=== PATIENT | male | born 1975 | race Caucasian/White ===

== ENCOUNTER → 2021-03-27 | Outpatient (CLI) | payer OTHER ==
--- NOTE | 2021-03-27 14:25 | REP ---
INDICATION: ELEVATED LFT'S COMPARISON: None. TECHNIQUE: Real time solano scale ultrasound examination using curved array transducer. FINDINGS: Liver is mildly hyperechoic suggesting subtle fatty infiltration. No focal hepatic lesions are identified. The pancreas is incompletely evaluated due to interposed bowel gas but visualized portions appear normal. The gallbladder is normal and without gallstones, wall thickening, or pericholecystic fluid. No biliary ductal dilatation is appreciated and the common bile duct measures 2.5 mm diameter. Right kidney is normal in reniform shape without hydronephrosis and measures 10.6 x 4.6 x 3.8 cm. No ascites in the visualized right upper quadrant. IMPRESSION: Mild hepatosteatosis. <Electronically signed by Christiano Rehman > 03/27/21 6120
== END ==
LOC: M RAD 08:05
PROVIDERS: ATTEND Nurse Practitioner Adult Health
DX: R74.01 Elevation of levels of liver transaminase levels (principal)

== ENCOUNTER → 2021-09-11 | Outpatient (REF) | payer OTHER | LOC: M LAB REF 14:49 | PROVIDERS: ATTEND Physician Assistant | DX: D22.4 Melanocytic nevi of scalp and neck (principal) ==

== ENCOUNTER → 2022-04-16 | Outpatient (REF) | payer OTHER | LOC: M LAB REF 16:29 | PROVIDERS: ATTEND Surgery | DX: D22.9 Melanocytic nevi, unspecified (principal) ==

== ENCOUNTER → 2022-10-24 | Outpatient (CLI) | payer OTHER | LOC: M EKG 10:59 | PROVIDERS: ATTEND Nurse Practitioner Adult Health | DX: R00.9 Unspecified abnormalities of heart beat (principal) ==

== ENCOUNTER 2023-10-13 15:38 | Emergency (ER) | payer BC, OTHER ==
[~2023-10-13] VITALS: Ht 170.2 cm; Wt 75.0 kg
[2023-10-13] MEDS ORDERED: LISI20TA33 (15:47)
[2023-10-13] MEDS ORDERED: ZOLP6.2517 (15:47)
[2023-10-13] MEDS ORDERED: LORazepam 2 MG TAB PO STA (19:12)
[2023-10-13] MEDS ORDERED: LORazepam 1 MG TAB PO STA (19:27)
[2023-10-13 19:55] LABS: BASO # 0.1 10^3/uL (0.0-0.2); BASO % 0.5 % (0.0-1.0); EOS % 0.1 % (0.0-3.0); HEMATOCRIT 46.3 % (42.0-52.0); HEMOGLOBIN 16.4 g/dl (13.5-17.5); LYMPH % 22.3 % (24.0-44.0); MEAN CORPUSCULAR HEMOGLOBIN 33.3 pg (27.0-33.0); MEAN CORPUSCULAR HGB CONC 35.4 g/dl (32.0-36.5); MEAN CORPUSCULAR VOLUME 94.1 fl (80.0-96.0); MONO # 1.5 10^3/uL (0.0-0.8); MONO % 11.3 % (2.0-8.0); NEUTROPHILS # 8.8 10^3/uL (1.5-8.5); NEUTROPHILS % 65.4 % (36.0-66.0); PLATELET COUNT, AUTOMATED 381 10^3/uL (150-450); RED BLOOD COUNT 4.92 10^6/uL (4.30-6.10); WHITE BLOOD COUNT 13.4 10^3/uL (4.0-10.0)
[2023-10-13] MEDS ORDERED: LORA2TAB14 PO ×2 (20:41→20:44)
[2023-10-13 20:43] VITALS: BP 152/99; TEMP 98.1; O2SAT 99
[2023-10-13] MEDS ORDERED: ATIV2TAB PO (20:46)
== END 2023-10-13 21:05 | disposition home or self-care (01) ==
LOC: M ED 15:38
DX: F41.9 Anxiety disorder, unspecified (principal); I10 Essential (primary) hypertension; Z88.1 Allergy status to other antibiotic agents

== ENCOUNTER 2023-12-11 10:46 | Emergency (ER) | payer BC ==
[~2023-12-11] VITALS: Ht 167.6 cm; Wt 74.1 kg
[~2023-12-11 10:46] MED LIST: ATIV2TAB PO; LISI20TA33 PO; LORA2TAB14 PO; ZOLP6.2517 PO
[2023-12-11] MEDS ORDERED: NS 1,000 ML IV ONE (10:55)
[2023-12-11 11:00] VITALS: TEMP 96.1
[2023-12-11] MEDS ORDERED: MED REC IN PROGRESS XX SCH (11:05)
[2023-12-11 11:15] LABS: BASO # 0.1 10^3/uL (0.0-0.2); BASO % 0.6 % (0.0-1.0); EOS % 0.1 % (0.0-3.0); HEMATOCRIT 45.6 % (42.0-52.0); HEMOGLOBIN 15.6 g/dl (13.5-17.5); LYMPH # 2.3 10^3/uL (1.5-5.0); LYMPH % 27.4 % (24.0-44.0); MEAN CORPUSCULAR HEMOGLOBIN 34.1 pg (27.0-33.0); MEAN CORPUSCULAR HGB CONC 34.2 g/dl (32.0-36.5); MEAN CORPUSCULAR VOLUME 99.6 fl (80.0-96.0); MONO # 0.5 10^3/uL (0.0-0.8); MONO % 5.8 % (2.0-8.0); NEUTROPHILS # 5.5 10^3/uL (1.5-8.5); NEUTROPHILS % 65.9 % (36.0-66.0); PLATELET COUNT, AUTOMATED 284 10^3/uL (150-450); RED BLOOD COUNT 4.58 10^6/uL (4.30-6.10); WHITE BLOOD COUNT 8.4 10^3/uL (4.0-10.0)
[2023-12-11 11:42] LABS: ALBUMIN 3.5 G/DL (3.2-5.2); ALKALINE PHOSPHATASE 89 U/L (46-116); ALT/SGPT 36 U/L (7.0-40); AST/SGOT 32 U/L (<34); BILIRUBIN,DIRECT 0.2 MG/DL (<0.4); BILIRUBIN,TOTAL 0.6 MG/DL (0.3-1.2); BLOOD UREA NITROGEN 13 MG/DL (9-23); CARBON DIOXIDE LEVEL 27 MMOL/L (20-31); CHLORIDE LEVEL 109 MMOL/L (98-107); CREATININE FOR GFR 0.98 MG/DL (0.70-1.30); GLOMERULAR FILTRATION RATE > 60.0 (>60); GLUCOSE, FASTING 158 MG/DL (60-100); POTASSIUM SERUM 4.6 MMOL/L (3.5-5.1); SALICYLATE LEVEL < 3.0 MG/DL (<30); SODIUM LEVEL 142 MMOL/L (136-145); TOTAL PROTEIN 6.4 G/DL (5.7-8.2)
[2023-12-11 11:45] LABS: THYROID STIMULATING HORMONE 1.605 uIU/ML (0.55-4.78)
[2023-12-11 11:49] LABS: RSV AMPLIFICATION NEGATIVE (NEGATIVE)
[2023-12-11 12:05] LABS: ETHYL ALCOHOL (ETHANOL) 0.448 % (0.000-0.010)
[2023-12-11 14:48] LABS: AMPHETAMINES LEVEL URINE NEGATIVE (NEGATIVE); BARBITURATES URINE NEGATIVE (NEGATIVE); BENZODIAZEPINES URINE NEGATIVE (NEGATIVE); CANNABINOIDS URINE NEGATIVE (NEGATIVE); COCAINE METABOLITE URINE NEGATIVE (NEGATIVE); METHADONE URINE NEGATIVE (NEGATIVE); OPIATES URINE NEGATIVE (NEGATIVE); PHENCYCLIDINE URINE NEGATIVE (NEGATIVE)
[2023-12-11 16:51] VITALS: O2SAT 97
[2023-12-11 17:05] VITALS: BP 133/85
== END 2023-12-11 17:38 | disposition home or self-care (01) ==
LOC: EDBD 10:46 → M ED 10:46
DX: F10.129 Alcohol abuse with intoxication, unspecified (principal); E04.1 Nontoxic single thyroid nodule; I10 Essential (primary) hypertension; F41.9 Anxiety disorder, unspecified; Z79.899 Other long term (current) drug therapy; Z88.1 Allergy status to other antibiotic agents

== ENCOUNTER → 2024-01-05 | Outpatient (CLI) | payer BC | LOC: M RAD 11:47 | PROVIDERS: ATTEND Internal Medicine | DX: E04.1 Nontoxic single thyroid nodule (principal) ==

== ENCOUNTER → 2024-01-13 | Outpatient (REF) | payer BC | LOC: M LAB REF 17:12 | PROVIDERS: ATTEND Internal Medicine Endocrinology, Diabetes & Metabolism | DX: E04.1 Nontoxic single thyroid nodule (principal) ==

== ENCOUNTER → 2024-02-16 | Outpatient (REF) | payer BC | LOC: M LAB REF 17:24 | PROVIDERS: ATTEND Internal Medicine Endocrinology, Diabetes & Metabolism | DX: E04.1 Nontoxic single thyroid nodule (principal) ==

== ENCOUNTER → 2025-03-08 | Outpatient (CLI) | payer BC ==
[~2025-03-08] MED LIST changes: -ZOLP6.2517 PO; +ZOLP6.2526 PO
== END ==
LOC: M RAD 15:47
PROVIDERS: ATTEND Nurse Practitioner Family
DX: E04.1 Nontoxic single thyroid nodule (principal)

== ENCOUNTER → 2025-06-26 | Outpatient (CLI) | payer BC | LOC: M RAD 10:05 | DX: S29.011A Strain of muscle and tendon of front wall of thorax, initial encounter (principal); M17.11 Unilateral primary osteoarthritis, right knee ==